=== PATIENT | female | born 1980 | race Caucasian/White ===

== ENCOUNTER 2017-03-08 13:13 | Emergency (ER) | payer MEDICAID ==
[~2017-03-08] VITALS: Ht 152.4 cm; Wt 80.9 kg
[2017-03-08] MEDS ORDERED: METHY250 PO (13:23)
[2017-03-08 14:59] VITALS: BP 134/81
== END 2017-03-08 15:09 | disposition home or self-care (01) ==
LOC: EMS 13:16
DX: I10 Essential (primary) hypertension (principal)
CPT/HCPCS: 99281